=== PATIENT | female | born 1985 | race African-American/Black ===

== ENCOUNTER 2018-01-14 10:04 | Emergency (ER) | payer OTHER ==
[~2018-01-14] VITALS: Ht 167.6 cm; Wt 95.0 kg
[2018-01-14] MEDS ORDERED: RITALIN10 MG PO (10:25)
[2018-01-14] MEDS ORDERED: WELLBUTRIN SR150 MG PO (10:26)
[2018-01-14 10:38] LABS: URINE BILIRUBIN - DIPSTICK NEGATIVE (NEGATIVE); URINE BLOOD DIPSTICK MODERATE (NEGATIVE); URINE COLOR YELLOW; URINE GLUCOSE - DIPSTICK NEGATIVE (NEGATIVE); URINE KETONE NEGATIVE (NEGATIVE); URINE LEUK ESTERASE NEGATIVE (NEGATIVE); URINE NITRITE - DIPSTICK NEGATIVE (Negative); URINE PROTEIN - DIPSTICK NEGATIVE (NEG-TRACE); URINE SPECIFIC GRAVITY >=1.030; URINE UROBILINOGEN - DIPSTICK 0.2 E.U./dL (0.2)
[2018-01-14 10:40] LABS: URINE CLARITY SL CLOUDY
[2018-01-14 10:41] LABS: HEMATOCRIT 42.2 % (37.0-47.0); HEMOGLOBIN 14.1 g/dl (12.0-16.0); IMMATURE GRANULOCYTES 0.3 % (0.0-5.0); MEAN CELL VOLUME 89.8 fL CALC (80.0-100.0); MEAN CORPUSCULAR HGB CONC 33.4 g/L CALC (32.0-36.0); NEUT# 3.51 thou/uL (2.00-7.15); RED BLOOD COUNT 4.7 mill/uL (4.20-5.60); RED CELL DISTRI WIDTH 13.4 % (11.5-15.5)
[2018-01-14 10:42] LABS: URINE EPITHELIAL CELLS MODERATE EPI/hpf (0-FEW)
[2018-01-14 10:55] LABS: ALBUMIN 4.3 g/dL (3.2-5.0); ALKALINE PHOSPHATASE 49 u/l (38-126); ANION GAP 11 (6-22 (CALC)); BILIRUBIN, TOTAL 0.4 mg/dL (0.0-1.4); BUN 16 mg/dL (7-17); BUN/CREATININE RATIO 21 (12-20 (CALC)); CARBON DIOXIDE 26 mmol/l (22-30); CHLORIDE 108 mmol/l (95-108); CREATININE 0.8 mg/dL (0.5-1.0); GFR > 60 ML/MIN (>=60 (CALC)); GFR FOR AFR.AMER. > 60 ML/MIN (>=60 (CALC)); POTASSIUM 4.1 mmol/l (3.5-5.1); SGOT/AST 22 u/l (14-36); SGPT/ALT 34 u/l (9-52); SODIUM 140 mmol/l (137-146); TOTAL PROTEIN 7.9 g/dL (6.3-8.2)
[2018-01-14 11:10] VITALS: BP 135/84
== END 2018-01-14 11:12 | disposition home or self-care (01) ==
LOC: ED 10:04
PROVIDERS: Emergency Medicine
DX: N93.8 Other specified abnormal uterine and vaginal bleeding (principal)

== ENCOUNTER 2018-06-02 10:21 | Emergency (ER) | payer OTHER ==
[~2018-06-02] VITALS: Ht 167.6 cm; Wt 95.0 kg
[~2018-06-02 10:21] MED LIST: RITALIN10 MG PO; WELLBUTRIN SR150 MG PO
[2018-06-02] MEDS ORDERED: LORTAB 1010 MG PO (12:16)
[2018-06-02] MEDS ORDERED: BACTRIM DS1 TAB PO (12:16)
[2018-06-02] MEDS ORDERED: CEPHALEXIN500 M1 PO (12:16)
[2018-06-02 12:25] VITALS: BP 129/74
== END 2018-06-02 12:25 | disposition home or self-care (01) ==
LOC: ED 10:21
DX: L02.01 Cutaneous abscess of face (principal); B95.61 Methicillin susceptible Staphylococcus aureus infection as the cause of diseases classified elsewhere

== ENCOUNTER 2018-06-03 12:36 | Emergency (ER) | payer OTHER ==
[~2018-06-03] VITALS: Ht 167.6 cm; Wt 95.0 kg
[~2018-06-03 12:36] MED LIST changes: +BACTRIM DS1 TAB PO; +CEPHALEXIN500 M1 PO; +LORTAB 1010 MG PO
[2018-06-03 13:10] VITALS: BP 122/70
== END 2018-06-03 13:10 | disposition home or self-care (01) ==
LOC: ED 12:36
DX: Z48.01 Encounter for change or removal of surgical wound dressing (principal)

== ENCOUNTER 2019-06-17 18:20 | Emergency (ER) | payer OTHER ==
[2019-06-17] MEDS ORDERED: FLOXIN OTIC0.3 % AS (18:40)
[2019-06-17] MEDS ORDERED: AMOXICILLIN500 M2 PO ×2 (18:40)
[2019-06-17 18:50] VITALS: BP 113/63
== END 2019-06-17 18:50 | disposition home or self-care (01) ==
LOC: ED 18:20
DX: H60.92 Unspecified otitis externa, left ear (principal); F17.210 Nicotine dependence, cigarettes, uncomplicated

== ENCOUNTER 2020-01-29 11:50 | Emergency (ER) | payer OTHER ==
[~2020-01-29] VITALS: Ht 167.6 cm; Wt 93.0 kg
[~2020-01-29 11:50] MED LIST changes: +AMOXICILLIN500 M2 PO; +FLOXIN OTIC0.3 % AS
[2020-01-29 13:04] VITALS: BP 130/65
== END 2020-01-29 13:04 | disposition home or self-care (01) ==
LOC: ED 11:50
DX: S80.811A Abrasion, right lower leg, initial encounter (principal); M25.551 Pain in right hip; M25.561 Pain in right knee; M79.641 Pain in right hand; M79.671 Pain in right foot; F17.210 Nicotine dependence, cigarettes, uncomplicated; W13.3XXA Fall through floor, initial encounter; Y93.9 Activity, unspecified; Y92.029 Unspecified place in mobile home as the place of occurrence of the external cause

== ENCOUNTER 2020-03-02 09:33 | Emergency (ER) | payer OTHER ==
[~2020-03-02] VITALS: Ht 167.6 cm; Wt 100.0 kg
[2020-03-02] MEDS ORDERED: LORTAB 1010 MG PO (10:07)
[2020-03-02] MEDS ORDERED: FLOXIN OTIC0.3 % AD (10:07)
[2020-03-02] MEDS ORDERED: AMOXICILLIN875 MG PO (10:07)
[2020-03-02 10:28] VITALS: BP 128/72
== END 2020-03-02 10:28 | disposition home or self-care (01) ==
LOC: ED 09:33
DX: H66.91 Otitis media, unspecified, right ear (principal); F17.200 Nicotine dependence, unspecified, uncomplicated

== ENCOUNTER 2020-06-03 21:44 | Emergency (ER) | payer OTHER ==
[~2020-06-03] VITALS: Ht 167.6 cm; Wt 90.0 kg
[~2020-06-03 21:44] MED LIST changes: +AMOXICILLIN875 MG PO; +FLOXIN OTIC0.3 % AD
[2020-06-04 00:33] LABS: ALBUMIN 4.4 g/dL (3.2-5.0); ALKALINE PHOSPHATASE 47 u/l (38-126); AMYLASE 75 u/l (30-110); ANION GAP 11 (6-22 (CALC)); BILIRUBIN, TOTAL 0.4 mg/dL (0.0-1.4); BUN 17 mg/dL (7-17); BUN/CREATININE RATIO 20 (12-20 (CALC)); CARBON DIOXIDE 25 mmol/l (22-30); CHLORIDE 111 mmol/l (95-108); CREATININE 0.8 mg/dL (0.5-1.0); GFR > 60 ML/MIN (>=60 (CALC)); GFR FOR AFR.AMER. > 60 ML/MIN (>=60 (CALC)); HEMATOCRIT 43.2 % (37.0-47.0); IMMATURE GRANULOCYTES 0.2 % (0.0-5.0); LIPASE 46 u/l (23-300); MEAN CELL VOLUME 89.1 fL CALC (80.0-100.0); MEAN CORPUSCULAR HGB 28.9 pG CALC (26.0-32.0); MEAN CORPUSCULAR HGB CONC 32.4 g/dL CAL (32.0-36.0); NEUT# 4.18 thou/uL (2.00-7.15); POTASSIUM 4.2 mmol/l (3.5-5.1); RED BLOOD COUNT 4.85 mill/uL (4.20-5.60); RED CELL DISTRI WIDTH 13.9 % (11.5-15.5); SGOT/AST 22 u/l (14-36); SODIUM 142 mmol/l (137-146); TOTAL PROTEIN 8.3 g/dL (6.3-8.2)
[2020-06-04] MEDS ORDERED: VOLTAREN75 MG PO (02:07)
[2020-06-04 03:58] VITALS: BP 122/76
== END 2020-06-04 03:58 | disposition home or self-care (01) ==
LOC: ED 21:44
PROVIDERS: Family Medicine
DX: S39.012A Strain of muscle, fascia and tendon of lower back, initial encounter (principal); F17.200 Nicotine dependence, unspecified, uncomplicated; X58.XXXA Exposure to other specified factors, initial encounter
CPT/HCPCS: Q9967

== ENCOUNTER 2020-10-17 08:52 | Emergency (ER) | payer OTHER ==
[~2020-10-17 08:52] MED LIST changes: +VOLTAREN75 MG PO
[2020-10-17 10:24] VITALS: BP 117/68
== END 2020-10-17 10:24 | disposition home or self-care (01) ==
LOC: ED 08:52
DX: J06.9 Acute upper respiratory infection, unspecified (principal); F17.200 Nicotine dependence, unspecified, uncomplicated; Z20.822 Contact with and (suspected) exposure to COVID-19

== ENCOUNTER 2020-11-20 09:55 | Emergency (ER) | payer OTHER ==
[~2020-11-20] VITALS: Ht 167.6 cm; Wt 99.0 kg
[2020-11-20] MEDS ORDERED: FLONASE AL50 MCG/ACT (10:39)
[2020-11-20] MEDS ORDERED: FLOXIN OTIC0.3 % AU (10:39)
[2020-11-20] MEDS ORDERED: AMOXICILLIN875 MG PO (10:39)
[2020-11-20 10:41] VITALS: BP 112/74
== END 2020-11-20 10:45 | disposition home or self-care (01) ==
LOC: ED 09:55
DX: H66.93 Otitis media, unspecified, bilateral (principal); F17.200 Nicotine dependence, unspecified, uncomplicated

== ENCOUNTER 2022-01-21 16:01 | Emergency (ER) | payer OTHER ==
[~2022-01-21] VITALS: Ht 167.6 cm; Wt 95.2 kg
[~2022-01-21 16:01] MED LIST changes: +FLONASE AL50 MCG/ACT; +FLOXIN OTIC0.3 % AU
[2022-01-21 16:10] VITALS: BP 120/72
[2022-01-21 16:44] LABS: HEMATOCRIT 41.3 % (37.0-47.0); HEMOGLOBIN 13.7 g/dl (12.0-16.0); IMMATURE GRANULOCYTES 0.2 % (0.0-5.0); MEAN CELL VOLUME 91.2 fL CALC (80.0-100.0); MEAN CORPUSCULAR HGB 30.2 pG CALC (26.0-32.0); MEAN CORPUSCULAR HGB CONC 33.2 g/dL CAL (32.0-36.0); NEUT# 3.4 thou/uL (2.00-7.15); RED BLOOD COUNT 4.53 mill/uL (4.20-5.60); RED CELL DISTRI WIDTH 13.7 % (11.5-15.5)
[2022-01-21 16:54] LABS: ALKALINE PHOSPHATASE 48 u/l (38-126); ANION GAP 11 (6-22 (CALC)); BILIRUBIN, TOTAL 0.3 mg/dL (0.0-1.4); BUN 15 mg/dL (7-17); BUN/CREATININE RATIO 15 (12-20 (CALC)); CARBON DIOXIDE 26 mmol/l (22-30); CHLORIDE 108 mmol/l (95-108); GFR FOR AFR.AMER. > 60 ML/MIN (>=60 (CALC)); GFR OTHER RACES > 60 ML/MIN (>=60 (CALC)); POTASSIUM 3.7 mmol/l (3.5-5.1); SGOT/AST 21 u/l (14-36); SODIUM 141 mmol/l (137-146); TOTAL PROTEIN 7.5 g/dL (6.3-8.2)
[2022-01-21 17:10] LABS: URINE BILIRUBIN - DIPSTICK NEGATIVE (NEGATIVE); URINE BLOOD DIPSTICK NEGATIVE (NEGATIVE); URINE COLOR YELLOW; URINE GLUCOSE - DIPSTICK NEGATIVE (NEGATIVE); URINE KETONE TRACE mg/dL (NEGATIVE); URINE LEUK ESTERASE TRACE (NEGATIVE); URINE PH 6.5 (4.5-8.0); URINE PROTEIN - DIPSTICK NEGATIVE (NEG-TRACE); URINE SPECIFIC GRAVITY 1.025; URINE UROBILINOGEN - DIPSTICK 0.2 E.U./dL (0.2)
[2022-01-21 17:11] LABS: URINE NITRITE - DIPSTICK NEGATIVE (Negative)
[2022-01-21 17:18] LABS: URINE RBC 0-2 RBC/hpf (0-5); URINE SQUAMOUS EPITHELIAL CELL MANY EPI/hpf (0-FEW)
[2022-01-21 17:52] VITALS: BP 120/72
== END 2022-01-21 18:04 | disposition home or self-care (01) | DRG 89 ==
LOC: ED 16:01
PROVIDERS: Family Medicine
DX: S06.0X0A Concussion without loss of consciousness, initial encounter (principal); N39.0 Urinary tract infection, site not specified; S00.83XA Contusion of other part of head, initial encounter; S00.81XA Abrasion of other part of head, initial encounter; M79.642 Pain in left hand; M79.641 Pain in right hand; M54.2 Cervicalgia; F17.200 Nicotine dependence, unspecified, uncomplicated; V59.50XA Passenger in pick-up truck or van injured in collision with unspecified motor vehicles in traffic accident, initial encounter

== ENCOUNTER 2023-02-09 10:13 | Emergency (ER) | payer SELFPAY ==
[~2023-02-09] VITALS: Ht 167.6 cm; Wt 72.7 kg
[2023-02-09] MEDS ORDERED: MEDDOSEPAK PO (12:20)
[2023-02-09] MEDS ORDERED: ZYRTEC10 MG PO (12:20)
[2023-02-09 12:33] VITALS: BP 124/68
== END 2023-02-09 12:34 | disposition home or self-care (01) | DRG 178 ==
LOC: ED 10:13
DX: U07.1 COVID-19 (principal); R04.2 Hemoptysis; R52 Pain, unspecified; J45.909 Unspecified asthma, uncomplicated; F17.200 Nicotine dependence, unspecified, uncomplicated

== ENCOUNTER 2024-07-03 17:15 | Emergency (ER) | payer SELFPAY ==
[~2024-07-03] VITALS: Ht 167.6 cm; Wt 80.0 kg
[~2024-07-03 17:15] MED LIST changes: +DOXY-CAPS100 MG PO; +MEDDOSEPAK PO; +MOTRIN800 MG PO; +ZYRTEC10 MG PO
[2024-07-03 17:41] VITALS: BP 117/58
[2024-07-03 17:45] VITALS: BP 105/55
[2024-07-03] MEDS ORDERED: LIDOcaine HCl 1% (Local Anesth.) 20 ML VIAL STI STA (17:55)
[2024-07-03] MEDS ORDERED: POVIDONE IODINE 0.5 OZ/BTL TOP STA (17:55)
[2024-07-03] MEDS ORDERED: BACTRIM DS1 TAB PO ×2 (17:59→18:15)
[2024-07-03 18:00] VITALS: BP 111/52
[2024-07-03 18:15] VITALS: BP 104/65
[2024-07-03 18:30] VITALS: BP 104/65
== END 2024-07-03 18:30 | disposition home or self-care (01) | DRG 603 ==
LOC: ED 17:15
PROC: 0H98XZZ Drainage of Buttock Skin, External Approach (ICD-10-PCS; principal; 2024-07-03)
DX: L02.31 Cutaneous abscess of buttock (principal); F17.210 Nicotine dependence, cigarettes, uncomplicated